=== PATIENT | female | born 1925 | race Caucasian/White ===

== ENCOUNTER 2016-07-19 19:40 | Emergency (ER) | payer MEDICARE ==
[2016-07-19 20:14] VITALS: TEMP 98.2
[2016-07-19] MEDS ORDERED: KETOROLAC TROMETHAMINE INJ 60 MG/2 ML VIAL IM ONE (20:18)
--- NOTE | 2016-07-19 20:30 | RAD ---
PROCEDURE: XR ELBOW 1-2 VIEWS CLINICAL HISTORY: 89 years Female Elbow pain COMPARISON: None. TECHNIQUE: Two views of the left elbow. FINDINGS: No fractures or dislocations are identified. No osseous destructive lesions. No abnormal fat pad is identified. IMPRESSION: No acute osseous abnormality is identified. 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
--- NOTE | 2016-07-19 20:48 | ED.PDOC ---
History of Present Illness - General Chief Complaint: Upper Extremity Injury Stated Complaint: Left elbow pain Time Seen by Provider: 07/19/16 19:55 Source: patient, RN notes reviewed, Vital Signs reviewed Exam Limitations: no limitations - History of Present Illness Initial Comments: This 89 y/o female was pulling weeds in her garden today. When she finished, she noticed her left elbow was very sore and red. It has continued to worsen throughout the evening. It is painful to move it, but she is having difficulty finding a comfortable position for it. There is some mild swelling and heat around her elbow. Occurred: this afternoon Pain - Upper Extremity: moderate: Elbow, left Method of Injury: unknown Improving Factors: nothing Worsening Factors: movement Associated Symptoms: No fever/chills Allergies/Adverse Reactions: Allergies NO KNOWN ALLERGY Allergy (Unverified 09/22/12 09:09) Home Medications: Ambulatory Orders Clopidogrel Bisulfate [Plavix] 75 mg PO QD 11/30/15 Lisinopril 10 mg PO DAILY 12/01/15 Metoprolol Succinate [Metoprolol Succinate ER] 50 mg PO DAILY 12/01/15 Cephalexin Monohydrate [Keflex] 500 mg PO BID #14 cap 07/19/16 Review of Systems - Review of Systems Constitutional: States: no symptoms reported. Denies: chills, fever EENTM: States: no symptoms reported Respiratory: States: no symptoms reported Cardiology: States: no symptoms reported Gastrointestinal/Abdominal: States: no symptoms reported Genitourinary: States: no symptoms reported Musculoskeletal: States: joint pain, joint swelling Skin: States: change in color Neurological: States: no symptoms reported Endocrine: States: no symptoms reported Hematologic/Lymphatic: States: no symptoms reported All other Systems: Reviewed and Negative Past Medical History (General) - Patient Medical History Hx Seizures: No Hx Stroke: No Hx Asthma: No Hx of COPD: No Hx Cardiac Disorders: Yes Hx Congestive Heart Failure: No Hx Pacemaker: No Hx Hypertension: Yes Hx Diabetes: No Hx MRSA: No - Vaccination History Hx Influenza Vaccination: No Hx Pneumococcal Vaccination: No - Social History Hx Tobacco Use: No Hx Alcohol Use: No Hx Substance Use: No Hx Physical Abuse: No Hx Emotional Abuse: No - Female History Patient is a Female of Child Bearing Age (10 -59 yrs old): No Family Medical History - Family History Mother Family History: Unknown Living Status: Hx Family Stroke: Yes Physical Exam - Physical Exam General Appearance: Alert, Obvious distress Eyes, Ears, Nose, Throat Exam: normal ENT inspection Cardiovascular/Respiratory: no respiratory distress Elbow/Forearm Exam: normal ROM - with pain, pain, soft tissue tenderness - at olecranon bursa, swelling - at olecranon bursa with erythema Wrist Exam: normal inspection Hand Exam: normal inspection Mental Status: alert, oriented x 3 Skin Exam: other - erythematous at olecranon bursa Progress - Results/Orders Results/Orders: 07/19/16 20:11 Temperature 98.2 F Pulse Rate [ 84 Left] Respiratory 18 Rate Blood Pressure 127/78 [Right Arm] - EKG/XRAY/CT XRAY: elbow Xray Comments: No acute ruddy process Departure - Departure Clinical Impression: Septic olecranon bursitis of left elbow Time of Disposition: 20:56 Disposition: Discharge to Home or Self Care Condition: Fair Departure Forms: ED Discharge - Pt. Copy, Patient Portal Self Enrollment Instructions: DI for Elbow Bursitis Diet: resume usual diet Referrals: Arjun Austin MD [Primary Care Provider] - 1-5 Days Prescriptions: Cephalexin Monohydrate [Keflex] 500 mg PO BID #14 cap Home Medications: Ambulatory Orders Clopidogrel Bisulfate [Plavix] 75 mg PO QD 11/30/15 Lisinopril 10 mg PO DAILY 12/01/15 Metoprolol Succinate [Metoprolol Succinate ER] 50 mg PO DAILY 12/01/15 Cephalexin Monohydrate [Keflex] 500 mg PO BID #14 cap 07/19/16 Additional Instructions: Elevate. Follow up in ED if symptoms worsen.
[2016-07-19] MEDS ORDERED: cefTRIAXone SODIUM 1 GM VIAL IM ONE (20:49)
[2016-07-19] MEDS ORDERED: LIDOCAINE 1% 10 ML VIAL INJ ONE (20:53)
[2016-07-19 21:15] VITALS: BP 122/73
== END 2016-07-19 21:14 | disposition home or self-care (01) ==
LOC: ER 19:40
DX: M70.22 Olecranon bursitis, left elbow (principal); I10 Essential (primary) hypertension; Z79.899 Other long term (current) drug therapy
CPT/HCPCS: 73070; J0696; J1885

== ENCOUNTER → 2016-07-23 | Outpatient (CLI) | payer MEDICARE | LOC: GMAB 10:44 | PROVIDERS: ATTEND Family Medicine | DX: M70.20 Olecranon bursitis, unspecified elbow (principal) ==

== ENCOUNTER → 2016-08-24 | Outpatient (CLI) | payer MEDICARE ==
--- NOTE | 2016-08-25 09:25 | MAM ---
History: Well woman exam. Date of exam: 08/24/2016 Services provided: Bilateral full field digital screening mammography. CAD, the images were reviewed with R2 computer aided detection. FINDINGS: Glandular tissue is scattered glandular contour. Comparison with 2012 and 2014 exam. Stable glandular pattern. No dominant mass, architectural distortion or clustered microcalcification. 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
== END | disposition home or self-care (01) ==
LOC: MAMMO 08:37
PROVIDERS: ATTEND Family Medicine
DX: Z12.31 Encounter for screening mammogram for malignant neoplasm of breast (principal)